=== PATIENT | female | born 1955 | race Caucasian/White ===

== ENCOUNTER 2017-03-07 23:57 | Inpatient (IN) | payer MEDICARE, BC ==
--- NOTE | ~2017-03-07 | CO ---
Unit #: [id number] #: [id number] Patient: TEAGAN MCNEIL [id number] [address] [place], [place] [address] [id number] I MR#: [id number] NAME: TEAGAN MCNEIL ROOM: [facility] Age: 62 Sex: F Admission Date: 03/08/2017 : 1955 Attending Physician: Jeanette Hood M.D. Primary Care Physician: Abdi Valladares M.D. CONSULTATION REPORT REASON FOR CONSULTATION Critical care management. CHIEF COMPLAINT Shortness of breath. HISTORY OF PRESENT ILLNESS This patient basically is a 62-year-old female with past medical history of coronary artery disease. Presented with a complaint of shortness of breath and was brought by EMS. Was found to be hypoxic in the emergency room, intubated. Currently intubated, sedated and was found to be in rapid atrial fibrillation. I am seeing the patient at the bedside. REVIEW OF SYSTEMS Unobtainable. She is sedated. PAST MEDICAL HISTORY 1. Coronary artery disease. 2. Hypertension. 3. Asthma. 4. History of atrial fibrillation. SOCIAL HISTORY Nonsmoker, no alcohol, no drug abuse. FAMILY HISTORY None as per records. MEDICATIONS As per MAR, including lisinopril, Robaxin, oxycodone, Combivent, asthma inhaler, Prevacid, Lyrica. PHYSICAL EXAMINATION VITAL SIGNS: Temperature currently is 96, pulse 84, respirations 16, blood pressure 176/110. NEUROLOGIC: Sedated. CVS: S1, S2. RESPIRATORY: Bilateral air entry. Bilateral mild rhonchi. GI: Nontender. Soft. Bowel sounds are positive. EXTREMITIES: Positive edema. SKIN: No rashes, no ulcer. LYMPHATIC: No lymphadenopathy. DIAGNOSTIC STUDIES Unit #: [id number] #: [id number] Patient: TEAGAN MCNEIL Labs and imaging have been reviewed. ASSESSMENT 1. Acute hypoxic, hypercapnic respiratory failure. 2. Acute exacerbation of congestive heart failure. 3. Rapid atrial fibrillation. 4. Asthma exacerbation. 5. Bilateral pulmonary edema. PLAN At this point plan is to continue patient on Cardizem drip. Continue oxygen, bronchodilator, add IV steroid and continue diuretics. Already on Lasix. We will continue broad-spectrum antibiotics. Please see orders for detailed plan. Thank you very much for this consultation. We will continue to follow the patient. Dictated by... Sharonda Moreno/rashaun TD: 03/08/2017 10:43 JOB #: [id number] CONSULTATION REPORT Page 1 of 1 X Mirlande Mock MD X CONSULTATION REPORT
--- NOTE | ~2017-03-07 | EKG ---
PATIENT: TEAGAN MCNEIL UNIT #: [id number] Ventricular Rate: 124 BPM Atrial Rate: 312 BPM QRS Duration: 104 ms Q-T Interval: 338 ms QTC Calculation(Bezet): 485 ms Calculated R [place]: 48 degrees Calculated T [place]: 125 degrees Diagnosis Line: Atrial fibrillation with rapid ventricular Diagnosis Line: response Diagnosis Line: Septal infarct , age undetermined Diagnosis Line: Abnormal ECG Diagnosis Line: No previous ECGs available Diagnosis Line: Confirmed by PIETRO MANUEL MD ([id number]) on Diagnosis Line: 03/09/2017 9:38:29 PM INTERPRETING MD: KALEB KRAUS
--- NOTE | ~2017-03-07 | HP ---
Unit #: [id number] #: [id number] Patient: TEAGAN THOMAS [id number] [address] [place], [place] [address] [id number] I MR#: [id number] NAME: TEAGAN THOMAS ROOM: [facility] Age: 62 Sex: F Admission Date: 03/08/2017 : 1955 Attending Physician: Jeanette Hood M.D. Primary Care Physician: Abdi Valladares M.D. HISTORY AND PHYSICAL CHIEF COMPLAINT Shortness of breath. HISTORY OF PRESENT ILLNESS A 62 year old admitted because of shortness of breath with a history of congestive heart failure and atrial fibrillation. Currently patient is intubated and sedated. No family at bedside. Most of the history is taken from ER physician notes. According to the note, patient had sudden onset shortness of breath before admission, and EMS brought her here. EMS gave some DuoNeb, but her saturations were still 40%, so patient was intubated. Her shortness of breath is severe at rest. No fever. No chills. No chest pain. PAST MEDICAL HISTORY 1. History of chronic systolic heart failure. Ejection fraction 35% to 40%. 2. Chronic respiratory failure. 3. Chronic atrial fibrillation, on Coumadin. 4. History of valvular heart disease with mild aortic stenosis. 5. Hypertension. 6. Mild carotid stenosis. 7. Hyperglycemia. Not sure if she is diabetic. 8. Fibromyalgia. 9. Gastroesophageal reflux disease. 10. Bipolar disorder. 11. Arthritis. 12. History of breast cancer. PAST SURGICAL HISTORY 1. Right thumb surgery. 2. Caesarian section. 3. Hysterectomy. 4. Ear surgery. 5. Right breast cancer with lymph node removal. SOCIAL HISTORY Unavailable because patient is unresponsive. ALLERGIES Naproxen. HOME MEDICATIONS Norvasc, Prevacid, Zyrtec, Hydrochlorothiazide, Relafen, Percocet, Coreg, lisinopril, Flovent, albuterol, Lyrica, Coumadin. This list is incomplete. Unit #: [id number] #: [id number] Patient: TEAGAN THOMAS I will get complete list from the pharmacy. FAMILY HISTORY Unavailable because patient is intubated and sedated. REVIEW OF SYSTEMS Unavailable because patient is intubated and sedated. PHYSICAL EXAMINATION GENERAL EXAMINATION: A 62 year old, intubated and sedated currently. Not in acute distress. VITAL SIGNS: Temperature 97.1, pulse 71, respirations 14, blood pressure 118/78. EYES: Pupils are equally reactive to light and accommodation. MOUTH: Dry mucosa present. NECK: Supple. HEART: S1, S2 heard. Irregular, tachycardia present. Murmur present. LUNGS: Bilateral crackles present. Decreased breath sounds present. ABDOMEN: Soft, nontender. Bowel sounds are present. EXTREMITIES: Trace edema present. SKIN: Skin on neck area shows erythematous changes, likely chronic. NEUROLOGIC: Patient is sedated. DIAGNOSTIC STUDIES LAB DATA: Troponin is negative. WBC 19.4, hemoglobin 16.8, platelets 282. INR 2. ABG - pH 7.27, carbon dioxide 47, oxygen 114. Sodium 135, potassium 4.3, carbon dioxide 20, glucose 347, creatinine 1.1. BNP 670. Urinalysis shows glucose 500. No infection. Procalcitonin 0.37. IMAGING: Chest x-ray shows vascular congestion. ASSESSMENT A 62 year old admitted because of shortness of breath. PLAN 1. Acute hypercapnic hypoxic respiratory failure with history of chronic respiratory failure. Patient currently intubated. Dr. Mock is following. Continue with Meri. 2. Acute on chronic systolic heart failure, ejection fraction 35% to 40%. Patient is on IV Lasix. I am going to do echocardiogram and ask Dr. Garcia to see. 3. Atrial fibrillation with rapid ventricular rate. Patient is on Coumadin. INR therapeutic. Patient was started on IV Cardizem drip. Monitor closely in ICU. 4. Less likely pneumonia. No sepsis. CAT scan is pending. She is started on IV vancomycin and IV Zosyn. Will check for any pneumonia. 5. History of bipolar disorder. Stable. 6. Diabetes mellitus type 2, uncontrolled. Likely new onset. Previous discharge summary mentioned hyperglycemia but did not say patient is diabetic. I am going to do Accu-Cheks and hemoglobin A1C. 7. Metabolic acidosis. Likely secondary to CHF. Monitor. Dictated by Jeanette Hood M.D. Unit #: [id number] #: [id number] Patient: WILLIAMTEAGAN GALLOWAY/rashaun TD: 03/08/2017 12:07 JOB #: [id number] HISTORY AND PHYSICAL Page 1 of 1 X Jeanette Hood MD HISTORY AND PHYSICAL
--- NOTE | ~2017-03-07 | TH ---
Unit #: [id number] #: [id number] Patient: CLARI THOMAS [id number] [address] [place], [place] [address] [id number] I MR#: [id number] NAME: CLARI THOMAS : 1955 SEX: F STUDY DATE/TIME: 03/11/2017 UNIT: C3A PCU ROOM: 340 STUDY DESCRIPTION: Cardiolite study Attending Physician: Jeanette Hood M.D. Primary Care Physician: Abdi Valladares M.D. CARDIOLOGY REPORT EXAM Cardiolite study. TECHNIQUE This 62-year-old patient received 0.4 mg of Lexiscan intravenously followed by 35.7 mCi of technetium 99 Cardiolite and images were obtained according to the standard SPECT protocol. For rest images, 11.51 mCi of Cardiolite was injected. Images were reviewed in both phases. FINDINGS Overall study quality is excellent. LV cavity size is normal. In both images, there is no lung activity. RV is normal. Rotating raw data showed no significant artifact, soft tissue attenuation, or GI uptake. Review of the SPECT images showed normal homogeneous radiotracer concentration throughout the myocardium in both the stress and rest images. Gated images showed a mild global hypokinesis of LV with an estimated LV ejection fraction 47%. IMPRESSION Myocardial perfusion imaging is normal. No evidence of ischemia or infarct. Normal LV dimensions. Mild hypokinesis of LV with estimated LV ejection fraction 47%. Dictated by... Sharonda Pardo/esteban TD: 03/11/2017 13:33 JOB #: [id number] CARDIOLOGY REPORT Page 1 of 1 X Sandee Vogel MD CARDIOLOGY REPORT
--- NOTE | ~2017-03-07 | CR72 ---
[facility] A Service of [facility] & [facility] RADIOLOGY TEXT RESULTS PATIENT: CLARI THOMAS LOCATION: [facility] 340- : 57 UNIT #: [id number] AGE: [address]: Jeanette Hood MD SEX: F ORDER DR: [id number] [facility] [address] [facility]. [place], [place] [address] [id number] I MR#: [id number] Acc #: [id number] NAME: CLARI THOMAS : 1955 SEX: F STUDY DATE/TIME: 03/09/2017 5:47 UNIT: [facility] ROOM: [facility] STUDY DESCRIPTION: CR Chest Single View Portable Attending Physician: Jeanette Hood M.D. Ordering Physician: Mirlande Mock M.D. Primary Care Physician: Abdi Valladares M.D. MEDICAL IMAGING REPORT This report is preliminary unless electronic signature is present EXAM Portable chest. INDICATIONS Respiratory failure, follow up. PROCEDURE Frontal view chest. COMPARIOSN 03/08/2017. FINDINGS Heart size stable. Slightly improving opacity in both lungs. ET tube unchanged. IMPRESSION Slightly improving interstitial and alveolar opacity in both lungs, otherwise stable. Dictated by... David Anderson M.D. THIS IS AN ELECTRONICALLY VERIFIED REPORT David Anderson M.D. at 03/10/2017 9:58 PM EED/gz TD: 03/09/2017 09:11 JOB #: [id number] MEDICAL IMAGING REPORT Page 1 of 1 COPY
--- NOTE | ~2017-03-07 | EKG ---
PATIENT: CLARI THOMAS UNIT #: [id number] Ventricular Rate: 62 BPM Atrial Rate: 55 BPM QRS Duration: 104 ms Q-T Interval: 578 ms QTC Calculation(Bezet): 586 ms Calculated R Winston: 71 degrees Calculated T Winston: 154 degrees Diagnosis Line: Atrial fibrillation Diagnosis Line: ST and Marked T wave abnormality, consider Diagnosis Line: anterolateral ischemia Diagnosis Line: Prolonged QT Diagnosis Line: Abnormal ECG Diagnosis Line: Diagnosis Line: Confirmed by JEREMY AKERS MD ([id number]) on Diagnosis Line: 03/10/2017 5:22:37 PM INTERPRETING MD: LESTER
--- NOTE | ~2017-03-07 | CR63 ---
[facility] A Service of [facility] & [facility] RADIOLOGY TEXT RESULTS PATIENT: CLARI THOMAS LOCATION: [facility] 340-01 : 57 UNIT #: [id number] AGE: [address]: Jeanette Hood MD SEX: F ORDER DR: [id number] [facility] [address] [facility]. [place], [place] [address] [id number] I MR#: [id number] Acc #: [id number] NAME: CLARI THOMAS : 1955 SEX: F STUDY DATE/TIME: 03/11/2017 7:18 UNIT: [address] ROOM: [facility] STUDY DESCRIPTION: CR Chest 2 View Attending Physician: Jeanette Hood M.D. Ordering Physician: Mirlande Mock M.D. Primary Care Physician: Abdi Valladares M.D. MEDICAL IMAGING REPORT This report is preliminary unless electronic signature is present EXAM 2 views chest, 03/11/2017 HISTORY Short of air for a couple of days. Breast cancer in 2005. FINDINGS PA and lateral radiographs of the chest are presented. Comparison 03/10/2017. Surgical clips right axilla. Stable cardiac enlargement. Lungs are well inflated bilaterally without evidence of acute infectious or inflammatory disease. No pleural effusion or pneumothorax. No suspicious nodule. Small area of linear scarring left mid lung zone laterally, stable. Degenerative changes in the spine. No acute appearing bony abnormality. Dictated by... Dipak Thakur M.D. THIS IS AN ELECTRONICALLY VERIFIED REPORT Dipak Thakur M.D. at 03/12/2017 6:32 PM DEINS/clara TD: 03/11/2017 11:07 JOB #: [id number] MEDICAL IMAGING REPORT Page 1 of 1 COPY
--- NOTE | ~2017-03-07 | DS ---
Unit #: [id number] #: [id number] Patient: CLARI THOMAS [id number] [address] [address] [id number] I MR#: [id number] NAME: CLARI THOMAS ROOM: 340 Age: 62 Sex: F Admission Date: 03/08/2017 : 1955 Discharge Date: Attending Physician: Jeanette Hood M.D. Primary Care Physician: Abdi Valladares M.D. DISCHARGE SUMMARY DISCHARGE DIAGNOSES 1. Acute on chronic hypercapnic, hypoxic respiratory failure. 2. Bilateral pneumonia. 3. Acute on chronic systolic heart failure. 4. Nonischemic cardiomyopathy. 5. Hypokalemia. 6. Pulmonary atrial fibrillation on Coumadin. 7. Hyperglycemia. Hemoglobin A1C normal likely secondary to steroids. 8. Hypertension. 9. Mild carotid stenosis. 10. Fibromyalgia. 11. Gastroesophageal reflux disease. 12. Bipolar. 13. Arthritis. 14. History of breast cancer. 15. Hyperlipidemia. 16. Valvular heart disease. 17. Metabolic acidosis. CONSULTATIONS 1. Dr. Vogel. 2. Dr. Mock. PROCEDURES The patient had a stress test which was normal. DIAGNOSTIC STUDIES LABORATORY: Glucose 217. Sputum culture is normal. Sodium 139, potassium 3.7, creatinine 1.0. WBC 16.3, hemoglobin 16.2, platelets 215. ABG normal on March 11, 2017. Hemoglobin A1C is 5.7. IMAGING: Chest x-ray, two view, shows no acute infiltrates. CT chest without contrast shows bilateral lower lobe consolidation or atelectasis. ALLERGIES Naproxen. DISCHARGE MEDICATIONS 1. Albuterol one puff inhalation daily p.r.n. shortness of breath. 2. Entresto 24/26 mg p.o. b.i.d. as per Cardiology. 3. Flovent 50 mcg inhalation daily. 4. Coumadin 5 mg p.o. daily. 5. Lyrica 150 mg p.o. three times daily. 6. Zyrtec 10 mg p.o. daily. Unit #: [id number] #: [id number] Patient: CLARI THOMAS 7. Coreg 6.25 mg p.o. b.i.d. 8. Lasix 40 mg p.o. daily. 9. Lipitor 40 mg daily. 10. Percocet 10 mg q.4 p.r.n. pain. 11. Spironolactone 12.5 mg p.o. daily. 12. Prevacid 30 mg p.o. b.i.d. 13. Potassium 40 mEq p.o. daily. 14. Azmacort two puffs inhalation b.i.d. Home dose. 15. Omnicef 300 mg p.o. b.i.d. for five days. HOSPITALIZATION COURSE A 62 year old admitted because of shortness of breath. Acute on chronic hypercapnic, hypoxic respiratory failure: Patient requiring intubation, currently extubated, on four liters. I am going to check ambulatory pulse ox. Acute on chronic systolic heart failure: The patient received diuretics and Coreg and the patient is on Entresto per Cardiology, currently compensated. Atrial fibrillation: Permanent, on Coumadin. INR therapeutic. Continue with Coumadin. PT and INR to be checked on 03/16/2017. Follow with PCP. Bilateral pneumonia: The patient received broad-spectrum antibiotics. Cultures negative. The patient will be discharged on Omnicef for five more days. Hyperlipidemia: Started on Lipitor. Hyperglycemia: Hemoglobin A1C is 5.7, likely secondary to steroids, nondiabetic. Fibromyalgia: Stable. The patient will be discharged home after seen by Cardiology. Entresto prescription per Cardiology. Follow with family physician in one week's time. Follow with Dr. Vogel in four weeks' time. Follow with Dr. Mock in two weeks' time. Discharge time taken is 45 minutes. Dictated by... Sharonda Almaraz TD: 03/11/2017 13:15 JOB #: [id number] Unit #: [id number] #: [id number] Patient: CLARI THOMAS DISCHARGE SUMMARY Page 1 of 1 X Jeaentte Hood MD X DISCHARGE SUMMARY
--- NOTE | ~2017-03-07 | CR72 ---
[facility] A Service of [facility] & [facility] RADIOLOGY TEXT RESULTS PATIENT: CLARI THOMAS LOCATION: [facility] 340- : 57 UNIT #: [id number] AGE: [address]: Jeanette Hood MD SEX: F ORDER DR: [id number] [facility] [address] [facility]. [place], [place] [address] [id number] I MR#: [id number] Acc #: [id number] NAME: CLARI THOMAS : 1955 SEX: F STUDY DATE/TIME: 03/10/2017 3:35 UNIT: [facility] ROOM: [facility] STUDY DESCRIPTION: CR Chest Single View Portable Attending Physician: Jeanette Hood M.D. Ordering Physician: Mirlande Mock M.D. Primary Care Physician: Abdi Valladares M.D. MEDICAL IMAGING REPORT This report is preliminary unless electronic signature is present EXAM Portable chest INDICATION Respiratory failure. PROCEDURE Frontal view chest. COMPARISON 03/09/2017. FINDINGS Stable cardiomegaly. No new dense consolidation. Interval extubation. IMPRESSION Interval extubation. Otherwise stable. Dictated by... David Anderson M.D. THIS IS AN ELECTRONICALLY VERIFIED REPORT David Anderson M.D. at 03/10/2017 9:53 PM NEELAM/lexis TD: 03/10/2017 09:17 JOB #: [id number] MEDICAL IMAGING REPORT Page 1 of 1 COPY
--- NOTE | ~2017-03-07 | CR72 ---
[facility] A Service of [facility] RADIOLOGY TEXT RESULTS PATIENT: CLARI THOMAS LOCATION: [facility] : 57 UNIT #: [id number] AGE: [address]: Jeanette Hood MD SEX: F ORDER DR: [id number] [facility] [address] [facility]. [place], [place] [address] [id number] I MR#: [id number] Acc #: [id number] NAME: TEAGAN MCNEIL : 1955 SEX: F STUDY DATE/TIME: 03/08/2017 0:08 UNIT: [facility] ROOM: 02615 STUDY DESCRIPTION: CR Chest Single View Portable Attending Physician: Sandro Velarde M.D. Ordering Physician: Kris Day M.D. Primary Care Physician: Abdi Valladares M.D. MEDICAL IMAGING REPORT This report is preliminary unless electronic signature is present EXAM Portable chest INDICATIONS Shortness of air today. PROCEDURE Frontal view chest. COMPARISON 11/26/2015 FINDINGS ET tube 3.6 cm above the marly. Large cardiomegaly. Central vascular congestion, interstitial prominence in both lungs. No pleural fluid or pneumothorax. IMPRESSION 1. ET tube is 3.6 cm above the marly. 2. Cardiomegaly. Central pulmonary vascular congestion suggesting CHF. Interstitial prominence in both lungs favored to represent edema. Dictated by... David Anderson M.D. THIS IS AN ELECTRONICALLY VERIFIED REPORT David Anderson M.D. at 03/08/2017 10:04 PM EED/angel TD: 03/08/2017 01:58 JOB #: [id number] MEDICAL IMAGING REPORT [facility] A Service [facility] RADIOLOGY TEXT RESULTS PATIENT: CLARI THOMAS [facility] : 56 UNIT #: [id number] AGE: [address]: Jeanette Hood MD SEX: F ORDER DR: Page 1 of 1 COPY
--- NOTE | ~2017-03-07 | CT57 ---
[facility] A Service of [facility] RADIOLOGY TEXT RESULTS PATIENT: CLARI THOMAS LOCATION: [address] : [birth year] UNIT #: [id number] AGE: [address]: Jeanette Hood MD SEX: F ORDER DR: [id number] [facility] [address] [facility]. [place], [place] [address] [id number] I MR#: [id number] Acc #: [id number] NAME: TEAGAN MCNEIL : 1955 SEX: F STUDY DATE/TIME: 03/08/2017 8:36 UNIT: [facility] ROOM: [facility] STUDY DESCRIPTION: CT Chest Wo Cont Attending Physician: Jeanette Hood M.D. Ordering Physician: Mirlande Mock M.D. Primary Care Physician: Abdi Valladares M.D. MEDICAL IMAGING REPORT This report is preliminary unless electronic signature is present EXAM CT of the chest without contrast INDICATION Shortness of breath. Respiratory failure for [address] chest was performed without contrast. Coronal and sagittal reformatted images were obtained. This CT exam was performed with one or more of the following radiation dose reduction techniques: automatic exposure control, adjustment of mA and/or kV according to patient size, and iterative reconstruction. FINDINGS There are tiny bilateral pleural effusions. There is bilateral lower lobe consolidation/atelectasis. There are bilateral ground-glass opacities elsewhere in the lungs. There is an endotracheal tube. There are prominent mediastinal lymph nodes which are nonspecific and may be reactive. Trace pericardial fluid or thickening. Limited imaging of the upper abdomen demonstrates a previous cholecystectomy. Bone windows demonstrate degenerative changes of the thoracic spine. IMPRESSION 1. There is bilateral lower lobe consolidation or atelectasis and ground-glass opacities elsewhere in the lungs. Findings are suggestive of pneumonia. Followup to clearing is recommended. 2. Additional findings as described. Dictated by... Ant Funk M.D. THIS IS AN ELECTRONICALLY VERIFIED REPORT [facility] A Service of [facility] & [facility] RADIOLOGY TEXT RESULTS PATIENT: CLARI THOMAS LOCATION: [facility]3-18 : 57 UNIT #: [id number] AGE: [address]: Jeanette Hood MD SEX: F ORDER DR: Ant Funk M.D. at 03/09/2017 12:34 PM Daljit TD: 03/08/2017 10:50 JOB #: [id number] MEDICAL IMAGING REPORT Page 1 of 1 COPY
--- NOTE | ~2017-03-07 | ST ---
Unit #: [id number] #: [id number] Patient: CLARI THOMAS [id number] [address] [address] [id number] I MR#: [id number] NAME: CLARI THOMAS : 1955 SEX: F STUDY DATE/TIME: 03/11/2017 UNIT: C3A PCU ROOM: 340 STUDY DESCRIPTION: Stress test Attending Physician: Jeanette Hood M.D. Primary Care Physician: Abdi Valladares M.D. CARDIOLOGY REPORT EXAM Nuclear study. FINDINGS Baseline EKG: Normal sinus rhythm. Nonspecific ST-T changes. Resting heart rate 73 per minute. Blood pressure 130/80. This 62-year-old patient received 0.4 mg of Lexiscan intravenously. During the test, no ischemic changes noted. No arrhythmias noted. Blood pressure was stable. INTERPRETATION 1. Nondiagnostic EKG during Lexiscan. 2. No arrhythmias noted. 3. Stable blood pressure during the test. 4. Correlate with the Cardiolite study. Dictated by... Sharonda Pardo/esteban TD: 03/11/2017 13:31 JOB #: [id number] CARDIOLOGY REPORT Page 1 of 1 X Sandee Vogel MD CARDIOLOGY REPORT
--- NOTE | ~2017-03-07 | CO ---
Unit #: [id number] #: [id number] Patient: CLARI THOMAS [id number] [id number] [facility]. [place], [place] [address] [id number] MR#: [id number] NAME: CLARI THOMAS ROOM: [facility] Age: 62 Sex: F Admission Date: 03/08/2017 : 1955 Attending Physician: Jeanette Hood M.D. Primary Care Physician: Abdi Valladares M.D. CONSULTATION REPORT HISTORY OF PRESENT ILLNESS This is a 62-year-old white female, who is known to Dr. Stanley, who has a history of hypertension, hyperlipidemia, and permanent atrial fibrillation where she is on anticoagulation with Coumadin. She has underwent a Cardiolite stress test in 2013, which showed no ischemia. She is reported to have nonischemic cardiomyopathy with an ejection fraction per echocardiogram in 2013 was 37%. Recent echocardiogram in 06/2016 shows normal left ventricular systolic function. The patient comes to the emergency room with complaint of shortness of breath. She is currently intubated. After speaking with her per phone, he states that the patient had been short of breath for the past few nights at home. She had difficulty clearing of throat, but reported no cough. Last week, she complained of back pain. He felt she looked bloated 2 nights ago, but it is unsure if she took any diuretics. At 11:30 p.m. he found her sitting on the floor profusely sweating where she could not get her breath. She was so short of breath. She was unable to speak. EMS was dispatched and she was found to be hypoxic with oxygen saturation level 41% on 100% FiO2. She was subsequently intubated. In the emergency room, her heart rate was elevated up to 138 beats per minute. She was treated with a Cardizem bolus, but no drip was required. Her heart rate is controlled. Her troponin is negative with no acute ischemic changes on her EKG. PAST MEDICAL HISTORY 1. 2D echocardiogram in 09/2014 shows an ejection fraction of 40% to 45%. 2. 2D echocardiogram on 05/20/2016 in [facility] office which showed an ejection fraction of 53% with mild pulmonic valvular regurgitation. Otherwise normal structures of the aortic, mitral, and tricuspid valves. Mildly dilated left atrium. 3. Stress test in 2014 negative for ischemia. 4. Permanent atrial fibrillation, on anticoagulation with Coumadin. 5. Hypertension. 6. Hyperlipidemia. 7. Asthma. 8. Right breast cancer, status post lymph node removal. 9. Mild carotid stenosis. 10. Fibromyalgia. 11. GERD. 12. Bipolar disorder. 13. Former smoker. PAST SURGICAL HISTORY Unit #: [id number] #: [id number] Patient: CLARI THOMAS 1. Right thumb surgery. 2. section. 3. Hysterectomy. 4. Right breast cancer with lymph node removal. 5. Ear surgery. SOCIAL HISTORY The patient is and disabled. She quit smoking 7 years ago. There is no history of illicit drug or alcohol use. FAMILY HISTORY Noncontributory. ALLERGIES Naproxen. HOME MEDICATIONS Relafen 750 mg t.i.d., carvedilol 6.25 mg daily, lisinopril 20 mg daily, Flovent 50 mcg inhaled daily, albuterol 1 inhalation, Lyrica 150 mg t.i.d., Coumadin 5 mg daily, Percocet 10/325 one q.4 hours p.r.n., Azmacort 2 puffs b.i.d., amlodipine 10 mg daily, Prevacid 30 mg b.i.d., Zyrtec 10 mg daily, hydrochlorothiazide 25 mg daily. REVIEW OF SYSTEMS Unable to obtain, because the patient is currently intubated. PHYSICAL EXAMINATION VITAL SIGNS: Blood pressure 178/93, heart rate 89, temperature 98.9, BMI 28. GENERAL: This is a well-developed 62-year-old white female, who is in no acute distress. She is intubated and sedated. NECK: Trachea is midline. No thyromegaly or lymphadenopathy. No jugular venous distention. HEART: S1 and S2. Heart sounds are normal. No murmurs, rubs, gallops or clicks. Irregularly irregular rhythm. LUNGS: Clear without rales, rhonchi, or wheeze. ABDOMEN: Soft and nontender with bowel sounds are present. EXTREMITIES: Without leg edema. SKIN: Warm and dry. DIAGNOSTIC STUDIES LABORATORY RESULTS: White count 19.4, hemoglobin 16.8, hematocrit 53.3, platelet count 282. Troponin less than 0.05. Sodium 143, potassium 4.3, BUN 26, creatinine 1.1, glucose 347. BNP 670. INR 2.0. Pro-time 21.1. IMAGING STUDIES: Chest x-ray shows cardiomegaly. There is pulmonary vascular congestion and interstitial prominence with edema. CARDIOVASCULAR STUDIES: EKG; atrial fibrillation/flutter with rapid ventricular response with a rate of 124 beats per minute. IMPRESSION 1. Acute hypoxic respiratory failure. 2. Permanent atrial fibrillation with rapid ventricular response converted to controlled ventricular rate. 3. Acute on chronic systolic heart failure with reduced ejection fraction of 35% to 40% in 2013 improved to 53% per echocardiogram on 05/20/2016. 4. Hypertension. Unit #: [id number] #: [id number] Patient: CLARI THOMAS 5. Hyperlipidemia. 6. History of asthma. PLAN 1. Cardiology was consulted for atrial fibrillation with rapid ventricular response. The patient's rate is currently controlled. No need for Cardizem. We will monitor rhythm. 2. Agree with IV diuretics. 3. Could continue IV antibiotics. 4. We will check 2D echocardiogram to revaluate left ventricular systolic function. 5. Control blood pressure with hydralazine until able to take oral. 6. Troponin will be trended as well as checking thyroid levels and lipid panel. 7. Monitor INR and continue Coumadin as necessary. 8. Follow up with Dr. Stanley. Thank you for allowing us to assist with this patient's care. Dictated by... Angel Lopez/herbie TD: 03/09/2017 03:31 JOB #: [id number] CC: Pavan Stanley M.D. CONSULTATION REPORT Page 1 of 1 X Ernst Galvan APRN CONSULTATION REPORT
[~2017-03-07 23:57] MED LIST: ALBUTEROL20 ml INH; ASMACORT; ATIVAN PO; CARVEDILOL6.25 MG PO; COMBIVENT INH14.7 GM INH; COUMADIN5 MG PO; FLOVENT DI50 MCG/DIS INH; HCTZ PO; HYDROCODONE-APA1 T30 PO; LEXAPRO PO; LISINOPRIL30 MG PO; LYRICA100 MG PO; NABUMETONE PO; NOLVADEX PO; NORVASC PO; PERCOCET5/325 PO; PREVACID PO; QUESTRAN POWDE378 GM PO; TRAZODONE PO; ZYRTEC PO
[2017-03-08 00:49] LABS: BASOPHIL# 0.2 X10e3 (0-0.3); BASOPHIL% 0.9 % (0-2.5); EOSINOPHIL# 0.2 X10e3 (0-0.7); EOSINOPHIL% 0.8 % (0.0-7.0); HEMATOCRIT 53.3 % (35.0-45.0); HEMOGLOBIN 16.8 gm/dL (12.0-16.0); LYMPHOCYTE# 4.9 X10e3 (1.0-3.5); LYMPHOCYTE% 25.5 % (17.0-45.0); MEAN CELL VOLUME 88.8 FL (83-96); MEAN CORPUSCULAR HGB CONC 31.5 g/dL (30-36); MONOCYTE# 1.5 X10e3 (0-1.0); MONOCYTE% 7.5 % (3.0-12.0); NEUTROPHIL# 12.7 X10e3 (1.5-7.1); NEUTROPHIL% 65.3 % (40-75); PLATELET COUNT 282 X10e3 (140-420); RED CELL DISTRIBUTION WIDTH 17.4 % (11.0-15.5); WHITE BLOOD COUNT 19.4 X10e3 (4.0-10.5)
[2017-03-08 00:52] LABS: POC - CKMB 1.9 ng/mL (0.0-7.9); POC - TROPONIN <0.05 ng/mL (<=0.05)
[2017-03-08 00:56] LABS: DIFF IND YES
[2017-03-08 01:02] LABS: PARTIAL THROMBOPLASTIN TIME 26.9 SECONDS (23.5-31.3); PROTHROMBIN TIME (PATIENT) 21.1 SECONDS (9.6-11.5)
[2017-03-08 01:04] LABS: PLATELET ESTIMATE NORMAL (NORMAL)
[2017-03-08 01:07] LABS: ARTERIAL BLD GAS O2 SATURATION 94.5 % (90.0-100.0); ARTERIAL BLOOD GAS CARBOXY HB 3.2 %sat (0.0-9.0); ARTERIAL BLOOD GAS HCO3 21.9 mmol/L; ARTERIAL BLOOD GAS MET HB 0.5 %sat (0.0-2.0); ARTERIAL BLOOD GAS PCO2 47.4 mmHg (35.0-45.0); ARTERIAL BLOOD GAS pH 7.272 (7.350-7.450)
[2017-03-08 01:11] LABS: ARTERIAL BLOOD GAS ALLEN TEST NORMAL; ARTERIAL BLOOD GAS ART SITE RIGHT RADIAL; ARTERIAL BLOOD GAS DELIVERY VENT; ARTERIAL BLOOD GAS VENT MODE AC; ARTERIAL DRAW? YES
[2017-03-08 01:19] LABS: ALBUMIN SERUM 4.6 g/dL (3.5-5.0); BILIRUBIN, DIRECT 0.2 mg/dL (0.0-0.2); BILIRUBIN,INDIRECT 0.8 mg/dL (0.0-0.9); BUN/CREATININE RATIO 23.63; CALCIUM SERUM 9.7 mg/dL (8.4-10.2); CREATININE SERUM 1.1 mg/dL (0.6-1.4); GLOM FILT RATE Estimated 54.2 mL/min (>60); POTASSIUM 4.3 mmol/L (3.5-5.1); PROTEIN TOTAL SERUM 7.7 g/dL (6.0-8.3)
[2017-03-08 02:42] LABS: POC - CKMB 1.2 ng/mL (0.0-7.9); POC - TROPONIN <0.05 ng/mL (<=0.05)
[2017-03-08 03:26] LABS: URINE SOURCE CLEAN CATCH
[2017-03-08 03:30] LABS: URINE APPEARANCE CLEAR; URINE BILIRUBIN NEG (NEG); URINE BLOOD 1+ (NEG); URINE COLOR YELLOW; URINE GLUCOSE 500 MG/DL (NEG); URINE KETONE NEG (NEG); URINE LEUKOCYTE ESTERASE NEG (NEG); URINE NITRATE NEG (NEG); URINE PH 5.5 (5-8); URINE PROTEIN 3+ (NEG); URINE SPECIFIC GRAVITY 1.017 (1.003-1.035)
[2017-03-08 03:32] LABS: URINE BACTERIA AUWI NEG (NEGATIVE); URINE SQUAMOUS EPITHELIAL CELL FEW /[HPF]
[2017-03-08 03:46] LABS: CULTURE INDICATED? NO
[2017-03-08 05:55] LABS: ARTERIAL BLD GAS O2 SATURATION 98.6 % (90.0-100.0); ARTERIAL BLOOD GAS CARBOXY HB 1.3 %sat (0.0-9.0); ARTERIAL BLOOD GAS MET HB 0.1 %sat (0.0-2.0); ARTERIAL BLOOD GAS PCO2 36.9 mmHg (35.0-45.0); ARTERIAL BLOOD GAS pH 7.456 (7.350-7.450)
[2017-03-08 05:56] LABS: ARTERIAL BLOOD GAS ALLEN TEST NORMAL; ARTERIAL BLOOD GAS ART SITE RIGHT RADIAL; ARTERIAL BLOOD GAS DELIVERY VENT; ARTERIAL BLOOD GAS VENT MODE AC; ARTERIAL DRAW? YES
[2017-03-08] MEDS ORDERED: PERCOCET10 PO (11:22)
[2017-03-09 03:48] LABS: ARTERIAL BLD GAS O2 SATURATION 98.9 % (90.0-100.0); ARTERIAL BLOOD GAS CARBOXY HB 0.3 %sat (0.0-9.0); ARTERIAL BLOOD GAS MET HB 0.6 %sat (0.0-2.0); ARTERIAL BLOOD GAS PCO2 37.4 mmHg (35.0-45.0); ARTERIAL BLOOD GAS pH 7.434 (7.350-7.450)
[2017-03-09 03:49] LABS: ARTERIAL BLOOD GAS ALLEN TEST NORMAL; ARTERIAL BLOOD GAS ART SITE LEFT RADIAL; ARTERIAL BLOOD GAS DELIVERY VENT; ARTERIAL BLOOD GAS VENT MODE AC; ARTERIAL DRAW? YES
[2017-03-09 04:14] LABS: HEMATOCRIT 47.5 % (35.0-45.0); HEMOGLOBIN 15.3 gm/dL (12.0-16.0); MEAN CELL VOLUME 86.8 FL (83-96); MEAN CORPUSCULAR HEMOGLOBIN 27.9 PG (28-34); MEAN CORPUSCULAR HGB CONC 32.1 g/dL (30-36); MEAN PLATELET VOLUME 8.9 FL (6.5-11.5); RED BLOOD COUNT 5.47 X10e (3.90-5.30); RED CELL DISTRIBUTION WIDTH 16.9 % (11.0-15.5); WHITE BLOOD COUNT 12.3 X10e3 (4.0-10.5)
[2017-03-09 04:25] LABS: INR 2.3; PROTHROMBIN TIME (PATIENT) 24.5 SECONDS (9.6-11.5)
[2017-03-09 04:36] LABS: CHOLESTEROL 206 mg/dL (0-200); HDL CHOLESTEROL 28 mg/dL (35-95); LDL/HDL RATIO 5 RATIO (0-4); TRIGLYCERIDES 174 mg/dL (10-160)
[2017-03-09 04:43] LABS: LDL CHOLESTEROL 143 mg/dL (-130)
[2017-03-09 04:56] LABS: BILIRUBIN,TOTAL 0.8 mg/dL (0.2-2.0); BUN/CREATININE RATIO 25.38; CALCIUM SERUM 8.8 mg/dL (8.4-10.2); CREATININE SERUM 1.3 mg/dL (0.6-1.4); GLOM FILT RATE Estimated 44.2 mL/min (>60); POTASSIUM 3.1 mmol/L (3.5-5.1)
[2017-03-09 09:13] LABS: ARTERIAL BLD GAS O2 SATURATION 98.1 % (90.0-100.0); ARTERIAL BLOOD GAS CARBOXY HB 0.4 %sat (0.0-9.0); ARTERIAL BLOOD GAS HCO3 27.4 mmol/L; ARTERIAL BLOOD GAS MET HB 0.6 %sat (0.0-2.0); ARTERIAL BLOOD GAS PCO2 45.6 mmHg (35.0-45.0); ARTERIAL BLOOD GAS pH 7.387 (7.350-7.450)
[2017-03-09 09:14] LABS: ARTERIAL BLOOD GAS ART SITE LEFT RADIAL; ARTERIAL BLOOD GAS DELIVERY VENT; ARTERIAL BLOOD GAS VENT MODE CPAP; ARTERIAL DRAW? YES
[2017-03-10 04:02] LABS: HEMATOCRIT 48.4 % (35.0-45.0); HEMOGLOBIN 15.7 gm/dL (12.0-16.0); MEAN CELL VOLUME 85.4 FL (83-96); MEAN CORPUSCULAR HEMOGLOBIN 27.7 PG (28-34); MEAN CORPUSCULAR HGB CONC 32.4 g/dL (30-36); MEAN PLATELET VOLUME 8.4 FL (6.5-11.5); RED BLOOD COUNT 5.66 X10e (3.90-5.30); RED CELL DISTRIBUTION WIDTH 17.6 % (11.0-15.5)
[2017-03-10 04:03] LABS: WHITE BLOOD COUNT 22.6 X10e3 (4.0-10.5)
[2017-03-10 04:09] LABS: ARTERIAL BLD GAS O2 SATURATION 91.4 % (90.0-100.0); ARTERIAL BLOOD GAS HCO3 29.8 mmol/L; ARTERIAL BLOOD GAS MET HB 0.7 %sat (0.0-2.0); ARTERIAL BLOOD GAS PCO2 43.1 mmHg (35.0-45.0); ARTERIAL BLOOD GAS pH 7.448 (7.350-7.450)
[2017-03-10 04:12] LABS: ARTERIAL BLOOD GAS ALLEN TEST NORMAL; ARTERIAL BLOOD GAS ART SITE LEFT RADIAL; ARTERIAL BLOOD GAS DELIVERY NASAL CANNULA; ARTERIAL BLOOD GAS PO2 61.9 mmHg (80.0-100); ARTERIAL DRAW? YES
[2017-03-10 04:13] LABS: INR 2.5; PROTHROMBIN TIME (PATIENT) 27.5 SECONDS (9.6-11.5)
[2017-03-10 04:35] LABS: ALBUMIN SERUM 4.2 g/dL (3.5-5.0); BUN/CREATININE RATIO 35.45; CALCIUM SERUM 8.9 mg/dL (8.4-10.2); CREATININE SERUM 1.1 mg/dL (0.6-1.4); GLOM FILT RATE Estimated 54.2 mL/min (>60); PROTEIN TOTAL SERUM 7.4 g/dL (6.0-8.3)
[2017-03-11 03:58] LABS: ARTERIAL BLD GAS O2 SATURATION 96.3 % (90.0-100.0); ARTERIAL BLOOD GAS HCO3 26.9 mmol/L; ARTERIAL BLOOD GAS MET HB 0.7 %sat (0.0-2.0); ARTERIAL BLOOD GAS PCO2 41.5 mmHg (35.0-45.0); ARTERIAL BLOOD GAS pH 7.419 (7.350-7.450)
[2017-03-11 03:59] LABS: ARTERIAL BLOOD GAS ALLEN TEST NORMAL; ARTERIAL BLOOD GAS ART SITE LEFT RADIAL; ARTERIAL BLOOD GAS DELIVERY ROOM AIR; ARTERIAL DRAW? YES
[2017-03-11 04:31] LABS: BASOPHIL% 0.1 % (0-2.5); HEMATOCRIT 49.9 % (35.0-45.0); HEMOGLOBIN 16.2 gm/dL (12.0-16.0); LYMPHOCYTE# 0.7 X10e3 (1.0-3.5); LYMPHOCYTE% 4.6 % (17.0-45.0); MEAN CELL VOLUME 86.9 FL (83-96); MEAN CORPUSCULAR HEMOGLOBIN 28.2 PG (28-34); MEAN CORPUSCULAR HGB CONC 32.4 g/dL (30-36); MEAN PLATELET VOLUME 8.7 FL (6.5-11.5); MONOCYTE# 0.7 X10e3 (0-1.0); MONOCYTE% 4.3 % (3.0-12.0); NEUTROPHIL# 14.8 X10e3 (1.5-7.1); PLATELET COUNT 215 X10e3 (140-420); RED BLOOD COUNT 5.74 X10e (3.90-5.30); RED CELL DISTRIBUTION WIDTH 17.7 % (11.0-15.5); WHITE BLOOD COUNT 16.3 X10e3 (4.0-10.5)
[2017-03-11 04:33] LABS: DIFF IND NO
[2017-03-11 04:49] LABS: ALBUMIN SERUM 3.8 g/dL (3.5-5.0); BILIRUBIN,TOTAL 0.9 mg/dL (0.2-2.0); CALCIUM SERUM 8.9 mg/dL (8.4-10.2); GLOM FILT RATE Estimated 60.8 mL/min (>60); MAGNESIUM 2.2 mg/dL (1.6-3.0); POTASSIUM 3.7 mmol/L (3.5-5.1); PROTEIN TOTAL SERUM 6.6 g/dL (6.0-8.3)
[2017-03-11] MEDS ORDERED: ENTRESTO 24 MG1 EACH PO (13:34)
[2017-03-11] MEDS ORDERED: LASIX PO (13:39)
[2017-03-11] MEDS ORDERED: LIPITOR40 MG PO (13:40)
[2017-03-11] MEDS ORDERED: ALDACTONE PO (13:42)
[2017-03-11] MEDS ORDERED: OMNICEF300 MG PO (13:43)
[2017-03-11] MEDS ORDERED: KLOR-CON PO (13:43)
== END 2017-03-11 18:02 | disposition home or self-care (01) | DRG 208 ==
LOC: CED 23:57 → CICCU3 03-08 01:53 → C3A PCU 03-08 01:53 → CEDOF 03-08 01:53 → CICCU3 03-08 09:55 → C3A PCU 03-10 15:29
PROVIDERS: Emergency Medicine; Internal Medicine; Internal Medicine Cardiovascular Disease
PROC: 5A1945Z Respiratory Ventilation, 24-96 Consecutive Hours (ICD-10-PCS; principal; 2017-03-08)
PROC: 0BH17EZ Insertion of Endotracheal Airway into Trachea, Via Natural or Artificial Opening (ICD-10-PCS; 2017-03-08)
PROC: B24BZZZ Ultrasonography of Heart with Aorta (ICD-10-PCS; 2017-03-09)
DX: J96.22 Acute and chronic respiratory failure with hypercapnia (principal); I50.23 Acute on chronic systolic (congestive) heart failure; J18.9 Pneumonia, unspecified organism; I11.0 Hypertensive heart disease with heart failure; I42.8 Other cardiomyopathies; E87.2 Acidosis; J44.0 Chronic obstructive pulmonary disease with (acute) lower respiratory infection; J44.1 Chronic obstructive pulmonary disease with (acute) exacerbation; I38 Endocarditis, valve unspecified; J45.901 Unspecified asthma with (acute) exacerbation; E87.6 Hypokalemia; I48.2 Chronic atrial fibrillation; Z79.01 Long term (current) use of anticoagulants; R73.9 Hyperglycemia, unspecified; T38.0X5A Adverse effect of glucocorticoids and synthetic analogues, initial encounter; Y92.9 Unspecified place or not applicable; I65.29 Occlusion and stenosis of unspecified carotid artery; M79.7 Fibromyalgia; K21.9 Gastro-esophageal reflux disease without esophagitis; F31.9 Bipolar disorder, unspecified; M19.90 Unspecified osteoarthritis, unspecified site; E78.5 Hyperlipidemia, unspecified; Z88.8 Allergy status to other drugs, medicaments and biological substances; Z90.710 Acquired absence of both cervix and uterus; Z85.3 Personal history of malignant neoplasm of breast
CPT/HCPCS: 31500; 36415; 36556; 36600; 51702; 71010; 71020; 71250; 78452; 80048; 80053; 80061; 80076; 80202; 81003; 82308; 82553; 82803; 82947; 83036; 83735; 83880; 84132; 84443; 84484; 85025; 85027; 85610; 85730; 87070; 87205; 93005; 93017; 93306; 94002; 94003; 94640; 94660; 94760; 94761; 96374; 96375; 99291; A9500; C9113; J0330; J0360; J1650; J1815; J1940; J2543; J2785; J2920; J2930; J3370